=== PATIENT | female | born 1995 | race Two or more races ===

== ENCOUNTER 2018-09-03 20:42 | Emergency (ER) | payer MEDICAID ==
[2018-09-03 23:03] LABS: ABSOLUTE BASOPHILS # (AUTO) 0.1 10^3/uL (0.0-0.2); ABSOLUTE EOSINOPHILS # (AUTO) 0.1 10^3/uL (0.0-0.6); ABSOLUTE MONOCYTES (AUTO) 0.8 10^3/uL (0.1-1.4); ABSOLUTE NEUT (AUTO) 12.8 10^3/uL (1.7-8.2); BASOPHILS % (AUTO) 0.5 % (0-2); EOSINOPHILS % (AUTO) 0.7 % (0-6); HEMATOCRIT 41.3 % (36.0-47.0); HEMOGLOBIN 13.7 g/dL (12.0-15.5); LYMPHOCYTES % (AUTO) 22.4 % (13-45); MEAN CORPUSCULAR HEMOGLOBIN 26.2 pg (27.0-33.4); MEAN CORPUSCULAR HGB CONC 33.2 g/dL (32.0-36.0); MEAN CORPUSCULAR VOLUME 79 fl (80-97); MONOCYTES % (AUTO) 4.3 % (3-13); PLATELET COUNT 422 10^3/uL (150-450); RED BLOOD COUNT 5.23 10^6/uL (3.72-5.28); RED CELL DISTRIBUTION WIDTH 14.8 % (11.5-14.0); SEGMENTED NEUTROPHILS % (AUTO) 72.1 % (42-78); TOTAL CELLS COUNTED % (AUTO) 100 %; WHITE BLOOD COUNT 17.7 10^3/uL (4.0-10.5)
[2018-09-03] MEDS ORDERED: NORMAL SALINE 1000 ML 1,000 ML IV ONE (23:15)
--- NOTE | 2018-09-03 23:17 | ER Document Report ---
ED Medical Screen (RME) - General Chief Complaint: Vaginal Bleeding Stated Complaint: POSSIBLE MISCARRIAGE Time Seen by Provider: 09/03/18 23:08 Notes: 23-year-old female with chief complaints of possible . She states she had a positive urine test with her [employer] a few days ago, negative home test, regular heavy menstrual cycles, and she is also developed some pain in her left lower abdomen/pelvic area. She denies nausea/vomiting, fever/chills, current bleeding. She has 1 previous with one child at home. TRAVEL OUTSIDE OF THE [place] IN LAST 30 DAYS: No Physical Exam - Vital signs Vitals: Temp Pulse Resp BP Pulse Ox 99.2 F 124 H 18 153/117 H 99 09/03/18 21:09 09/03/18 21:09 09/03/18 21:09 09/03/18 21:09 09/03/18 21:09 - Cardiovascular Rhythm: Regular, Tachycardia Heart sounds: Normal auscultation, S1 appreciated, S2 appreciated - Abdominal Inspection: Normal Tenderness: Nontender Course - Re-evaluation Re-evalutation: I have greeted and performed a rapid initial assessment of this patient. A comprehensive ED assessment and evaluation of the patient, analysis of test results and completion of the medical decision making process will be conducted by additional ED providers. - Vital Signs Vital signs: Temp Pulse Resp BP Pulse Ox 99.2 F 124 H 18 153/117 H 99 09/03/18 21:09 09/03/18 21:09 09/03/18 21:09 09/03/18 21:09 09/03/18 21:09 - Laboratory Result Diagrams: 09/03/18 22:40 Laboratory results interpreted by me: 09/03/18 22:40 WBC 17.7 H MCV 79 L MCH 26.2 L RDW 14.8 H Absolute Neutrophils 12.8 H
[2018-09-03 23:21] LABS: APPEARANCE,URINE CLEAR; BILIRUBIN,URINE NEGATIVE (NEGATIVE); COLOR,URINE STRAW; GLUCOSE, URINE NEGATIVE (NEGATIVE); KETONES,URINE NEGATIVE (NEGATIVE); LEUKOCYTE ESTERASE,URINE NEGATIVE (NEGATIVE); NITRITE,URINE NEGATIVE (NEGATIVE); PROTEIN,URINE 100 mg/dL (NEGATIVE); URINE SPECIFIC GRAVITY 1.008; UROBILINOGEN,URINE NEGATIVE mg/dL (<2.0)
--- NOTE | 2018-09-04 01:20 | RADIOLOGY REPORT (SQ) ---
EXAM: US Pelvis transvaginal CLINICAL DATA: 23-year-old female with left pelvic pain and bleeding TECHNICAL DATA: Ultrasound imaging of the pelvis was performed endovaginally on 09/04/2018 at 12:45 AM. Color and spectral Doppler imaging was utilized. COMPARISONS: None FINDINGS: The uterus is normal in size, shape and echogenicity and measures 8.0 x 4.0 x 4.5 cm. The endometrial complex measures 0.8 cm in thickness. There is no endometrial fluid. The right ovary measures 2.7 x 2.1 x 1.9 cm. The right ovary is normal in size, shape and echogenicity. Doppler imaging demonstrates normal pulsed and color Doppler flow. The left ovary measures 2.3 x 1.6 x 1.9 cm. The left ovary is normal in size, shape and echogenicity. Doppler imaging demonstrates normal pulsed and color Doppler flow. There is no free fluid in the pelvis. IMPRESSION: Grossly normal pelvic ultrasound.
--- NOTE | 2018-09-04 01:30 | ER Document Report ---
ED General - General Chief Complaint: Vaginal Bleeding Stated Complaint: POSSIBLE MISCARRIAGE Time Seen by Provider: 09/03/18 23:08 Primary Care Provider: [facility] [Provider Group] - 09/06/18 LOLA LEOS MD [Primary Care Provider] - Follow up as needed Mode of Arrival: Ambulatory Information source: Patient Notes: 23-year-old female presents with concern for . Patient states that she [facility] today and was told that she had a positive test. Patient went home and took several home tests that were negative. She states that she recently had her period that spanned between August 21 and August 26. She was being seen by [employer] for control pills to help with her heavy menstrual bleeding. Patient reports that this is extremely stressful for her as she suffered significantly from depression. TRAVEL OUTSIDE OF THE [place] IN LAST 30 DAYS: No - HPI Onset: Just prior to arrival Quality of pain: No pain Severity: None Pain Level: Denies Associated symptoms: None. denies: Diarrhea, Fever, Nausea, Vomiting Exacerbated by: Denies Relieved by: Denies Similar symptoms previously: Yes Recently seen / treated by doctor: Yes Past Medical History - General Information source: Patient - Social History Smoking Status: Never Smoker Chew tobacco use (# tins/day): No Frequency of alcohol use: Occasional Drug Abuse: None Lives with: Spouse/Significant other Family History: Reviewed & Not Pertinent Patient has suicidal ideation: No Patient has homicidal ideation: No - Medical History Medical History: Negative Renal/ Medical History: Denies: Hx Peritoneal Dialysis Past Surgical History: Reports: Hx Appendectomy, Hx Cholecystectomy Review of Systems - Review of Systems Notes: REVIEW OF SYSTEMS: CONSTITUTIONAL : Denies fever, chills, or sweats. Denies recent illness. Denies weight loss, recent hospitalizations. EENT: Denies visual changes, eye pain. Denies sore throat, oral lesions, difficulty swallowing. CARDIOVASCULAR: Denies chest pain. Denies palpitations. Denies lower extremity edema. RESPIRATORY: Denies cough. Denies shortness of breath, wheezing. GASTROINTESTINAL: Denies abdominal pain or distention. Denies nausea, vomiting, or diarrhea. Denies blood in vomitus, stools, or per rectum. Denies black, tarry stools. Denies constipation. GENITOURINARY: Denies difficulty urinating, painful urination, frequency, blood in urine, or vaginal discharge. MUSCULOSKELETAL: Denies back or neck pain or stiffness. Denies joint pain or swelling. SKIN: Denies rash, lesions or sores. HEMATOLOGIC : Denies easy bruising or bleeding. LYMPHATIC: Denies swollen glands. NEUROLOGICAL: Denies confusion or altered mental status. Denies loss of consciousness. Denies dizziness or lightheadedness. Denies headache. Denies weakness or paralysis. Denies problems difficulty with ambulation, slurred speech. Denies sensory loss, numbness, or tingling. Denies seizures. PSYCHIATRIC: Denies anxiety or stress. Denies depression, suicidal ideation, or homicidal ideation. Denies visual or auditory hallucinations. Physical Exam - Vital signs Vitals: Temp Pulse Resp BP Pulse Ox 99.2 F 124 H 18 153/117 H 99 09/03/18 21:09 09/03/18 21:09 09/03/18 21:09 09/03/18 21:09 09/03/18 21:09 - Notes Notes: PHYSICAL EXAMINATION: GENERAL: Well-appearing, well-nourished and in no acute distress. HEAD: Atraumatic, normocephalic. EYES: Pupils equal round and reactive to light, extraocular movements intact, conjunctiva are normal. ENT: Nares patent, oropharynx clear without exudates. Moist mucous membranes. NECK: Normal range of motion, supple without lymphadenopathy LUNGS: Breath sounds clear to auscultation bilaterally and equal. No wheezes rales or rhonchi. HEART: Regular rate and rhythm without murmurs ABDOMEN: Soft, nontender, nondistended abdomen. No guarding, no rebound. No masses appreciated. Female : deferred Musculoskeletal: Normal range of motion, no pitting or edema. No cyanosis. NEUROLOGICAL: Cranial nerves grossly intact. Normal speech, normal gait. Normal sensory, motor exams PSYCH: Normal mood, normal affect. SKIN: Warm, Dry, normal turgor, no rashes or lesions noted. Course - Re-evaluation Re-evalutation: 09/05/18 06:01 Laboratory 09/03/18 09/03/18 09/03/18 22:40 22:40 22:40 WBC 17.7 H RBC 5.23 Hgb 13.7 Hct 41.3 MCV 79 L MCH 26.2 L MCHC 33.2 RDW 14.8 H Plt Count 422 Seg Neutrophils % 72.1 Lymphocytes % 22.4 Monocytes % 4.3 Eosinophils % 0.7 Basophils % 0.5 Absolute Neutrophils 12.8 H Absolute Lymphocytes 4.0 Absolute Monocytes 0.8 Absolute Eosinophils 0.1 Absolute Basophils 0.1 Beta HCG, Quant < 2.39 Total Beta HCG NEGATIVE Urine Color Urine Appearance Urine pH Ur Specific [place] Urine Protein Urine Glucose (UA) Urine Ketones Urine Blood Urine Nitrite Urine Bilirubin Urine Urobilinogen Ur Leukocyte Esterase Urine WBC (Auto) Urine RBC (Auto) U Hyaline Cast (Auto) Squamous Epi Cells Auto Urine Mucus (Auto) Urine Ascorbic Acid Urine HCG, Qual Blood Type O POSITIVE Rhogam Indicated RHOGAM NOT INDICATED 09/03/18 22:40 WBC RBC Hgb Hct MCV MCH MCHC RDW Plt Count Seg Neutrophils % Lymphocytes % Monocytes % Eosinophils % Basophils % Absolute Neutrophils Absolute Lymphocytes Absolute Monocytes Absolute Eosinophils Absolute Basophils Beta HCG, Quant Total Beta HCG Urine Color STRAW Urine Appearance CLEAR Urine pH 6.0 Ur Specific [place] 1.008 Urine Protein 100 H Urine Glucose (UA) NEGATIVE Urine Ketones NEGATIVE Urine Blood NEGATIVE Urine Nitrite NEGATIVE Urine Bilirubin NEGATIVE Urine Urobilinogen NEGATIVE Ur Leukocyte Esterase NEGATIVE Urine WBC (Auto) 0 Urine RBC (Auto) 1 U Hyaline Cast (Auto) 1 Squamous Epi Cells Auto 1 Urine Mucus (Auto) RARE Urine Ascorbic Acid NEGATIVE Urine HCG, Qual NEGATIVE Blood Type Rhogam Indicated Transvaginal US 09/03/18 22:11 IMPRESSION: Grossly normal pelvic ultrasound. Temp Pulse Resp BP Pulse Ox 97.5 F 88 20 118/72 99 09/04/18 01:29 09/04/18 01:29 09/04/18 01:29 09/04/18 01:29 09/04/18 01:29 09/05/18 06:02 23-year-old female presents with concern for . Patient states that she was [facility] by [facility] today and was told that she had a positive test. Patient went home and took several home tests that were negative. She states that she recently had her period that spanned between August 21 and August 26. She was being seen by OR[employer] SAL[employer] for control pills to help with her heavy menstrual bleeding. Patient reports that this is extremely stressful for her as she suffered significantly from depression. Vital signs reviewed upon arrival. Patient does not appear toxic or dehydrated. She is in no acute distress. Patient has no physical complaints but is very stressed at the chance that she may be . Patient is not . Transvaginal ultrasound was normal. Reports provided to the patient as she does have follow-up with [employer] SAL[employer]ERSON on Thursday. Patient was reassured and discharged home in stable condition. Patient was evaluated and treated as appropriate for the patient's presenting symptoms and complaint, with consideration of any critical or life threatening conditions that may be associated with their obtained history and exam as noted above. All results were discussed with patient. Patient provided the opportunity to ask questions, and express concerns. Patient was educated on treatments based on their presumed diagnosis as noted above. At this time we will discharge the patient with return precautions and follow-up recommendations. Verbal discharge instructions given a the bedside. Medication warnings reviewed. Patient is in agreement with this plan and has verbalized understanding of return precautions. After careful consideration I feel that that patient can be safely discharged from the emergency department, they were advised to followup with a primary care physician in 2-3 days. Dictation on this chart was performed using voice recognition software and may result in unintended grammatical, spelling, syntax or errors. - Vital Signs Vital signs: Temp Pulse Resp BP Pulse Ox 97.5 F 88 20 118/72 99 09/04/18 01:29 09/04/18 01:29 09/04/18 01:29 09/04/18 01:29 09/04/18 01:29 - Laboratory Result Diagrams: 09/03/18 22:40 Laboratory results interpreted by me: 09/03/18 09/03/18 22:40 22:40 WBC 17.7 H MCV 79 L MCH 26.2 L RDW 14.8 H Absolute Neutrophils 12.8 H Urine Protein 100 H - Diagnostic Test Radiology reviewed: Image reviewed, Reports reviewed Discharge - Discharge Clinical Impression: Concern about complication without diagnosis Proteinuria Qualifiers: Proteinuria type: unspecified Qualified Code(s): R80.9 - Proteinuria, unspecified Condition: Good Disposition: HOME, SELF-CARE Instructions: Dysfunctional Uterine Bleeding ([facility]) Additional Instructions: You are not . Please follow-up with OR[employer]OES SALESPERSON as already scheduled for Thursday, September 06. You have been provided copies of your lab work and imaging that were performed today. Please bring these with you to your next OB appointment. Follow up with your [id number] hours for further care or return to the ED IMMEDIATELY if symptoms worsen or you have any concerns. If you cannot afford to follow up with your primary care physician a list of low cost clinics have been provided at the end of your discharge papers as well. Most prescribed medications have multiple side effects. The safest thing to do is when filling your prescription speak to your pharmacist regarding possible interactions with your normal home medications and over the counter medications such as Ibuprofen, Tylenol, Benadryl. If you experience any symptoms that cause you discomfort or concern you should discontinue the medication immediately and return to the emergency room or call your primary care physician. Forms: Elevated Blood Pressure Referrals: LOLA LEOS MD [Primary Care Provider] - Follow up as needed [facility] [Provider Group] - 09/06/18
[2018-09-04 01:39] VITALS: BP 118/72
== END 2018-09-04 01:48 | disposition home or self-care (01) ==
LOC: ER 20:42
DX: R80.9 Proteinuria, unspecified (principal); N93.9 Abnormal uterine and vaginal bleeding, unspecified
CPT/HCPCS: 99284; 86900; 86901; 36415; 84702; 85025; 81025; 81001; 76830; 93976; J7030